=== PATIENT | male | born 1985 ===

== ENCOUNTER 2023-10-16 12:00 | Outpatient (CLI) | payer BC, SELFPAY ==
--- NOTE | ~2023-10-16 | CT_ITS ---
EXAMINATION: CT sinus wo con DATE: 10/16/2023 12:17 INDICATION: Deviated nasal septum. TECHNIQUE: Computed tomography (CT) of the paranasal sinuses was performed without intravenous contra st. Iterative reconstruction technique was employed. The dose-length product was 255.24 mGy-cm. COMPARISON: None FINDINGS: There is mild mucosal thickening in the frontal recesses. There is mild mucosal thickening in the ethmoid sinuses and maxillary sinuses. The sphenoid sinuses are clear. There is gunnar bullosa involving the middle turbinates. There is a Barbie cell on the right. Right ostiomeatal unit is occl uded at the hiatus semilunaris. Left ostiomeatal unit is patent. There is rightward deviation of the nasal septum with a right lateral spur. IMPRESSION: 1. Mild mucosal thickening in the paranasal sinuses with occluded right ostiomeatal unit. 2. Rightward deviation of the nasal septum with a right lateral spur. Reviewed, dictated and finalized at location E. IMPRESSION: 1. Mild mucosal thickening in the paranasal sinuses with occluded right ostiome atal unit. 2. Rightward deviation of the nasal septum with a right lateral spur.
== END 2023-10-16 12:01 ==
PROVIDERS: PCP Emergency Medicine; Visit Provider Emergency Medicine
DX: J34.2 Deviated nasal septum (principal); J34.89 Other specified disorders of nose and nasal sinuses
CPT/HCPCS: 70486